=== PATIENT | female | born 1965 | race Caucasian/White ===

== ENCOUNTER 2022-02-12 07:04 | Day surgery (SDC) | payer OTHER ==
[~2022-02-12 07:04] MED LIST: CLONAZEPAM1 MG PO; DOCUSATE SODIU100 MG PO; PERCOCET 5/3251 TAB PO; PROTONIX40 MG PO
== END 2022-02-12 11:45 | disposition home or self-care (01) ==
LOC: AMB-ENDOS 07:04 → CIR.AMB 14:15
PROVIDERS: ATTEND Surgery
DX: D12.5 Benign neoplasm of sigmoid colon (principal); Z88.2 Allergy status to sulfonamides; K59.09 Other constipation; Z86.010 Personal history of colon polyps; Z20.822 Contact with and (suspected) exposure to COVID-19